=== PATIENT | male | born 1970 ===

== ENCOUNTER 2022-03-06 20:01 | Inpatient (IN) ==
[2022-03-06] MEDS ORDERED: ACETAMINOPHEN 325 MG TABLET PO PRN (22:43)
[2022-03-06] MEDS ORDERED: GLUCAGON 1 MG VIAL IM PRN (22:43)
[2022-03-06] MEDS ORDERED: DEXTROSE 10% 250 ML BAG IV PRN (23:06)
[2022-03-06 23:24] LABS: Basophils % 0.3 % (0.0-0.8); Eosinophils # 0.2 10*3/uL (0.0-0.87); Eosinophils % 2.3 % (0.00-10.9); Hematocrit 35.7 VOL% (42.0-52.0); Hemoglobin 11.7 GM/DL (14.0-18.0); Immature Granulocytes % 0.8 %; Immature Granulocytes Absolute 0.06 #; Lymphocytes % 27.3 % (21.2-54.2); Mean Corpuscular HGB Conc 32.8 GM/DL (32-36); Mean Corpuscular Volume 90.8 FL (87-102); Mean Platelet Volume 8.8 FL (9.6-12.0); Monocytes # 0.6 10*3/uL (0.11-0.8); Monocytes % 8.4 % (1.7-12.7); Neutrophils % 60.9 % (38.7-73.9); Platelet Count 455 T/CUMM (130-400); Red Blood Count 3.93 MC/CUMM (3.8-5.5); White Blood Count 7.3 T/CUMM (4-12)
[2022-03-06 23:46] LABS: Alanine Aminotransferase 19 U/L (16-61); Albumin 2.6 G/DL (3.4-5.0); Alkaline Phosphatase 93 U/L (45-117); Aspartate Amino Transferase 15 U/L (0-37); Bilirubin,Total < 0.39 MG/DL (0.20-1.00); Blood Urea Nitrogen 14 MG/DL (7-18); Calcium 8.6 MG/DL (8.5-10.1); Carbon Dioxide 27 MMOL/L (21-32); Chloride 103 MMOL/L (98-107); Glucose 377 MG/DL (74-106); Osmolality,Calculated 285.1 MOS/KG (273-304); Potassium 4.4 MMOL/L (3.5-5.1); Sodium 135 MMOL/L (136-145); Total Protein 7.4 G/DL (6.4-8.2)
[2022-03-07] MEDS: cefTRIAXone 1,000 MG in SODIUM CHLORIDE 0.9% 100 ML IV SCH ×2 (00:01→23:54)
[2022-03-07] MEDS: DOXYCYCLINE HYCLATE INJ 100 MG in SODIUM CHLORIDE 0.9% 100 ML IV SCH ×3 (01:01→23:53)
[2022-03-07 07:01] LABS: Basophils % 0.4 % (0.0-0.8); Eosinophils # 0.2 10*3/uL (0.0-0.87); Eosinophils % 2.5 % (0.00-10.9); Hematocrit 32.5 VOL% (42.0-52.0); Hemoglobin 10.5 GM/DL (14.0-18.0); Immature Granulocytes % 0.6 %; Immature Granulocytes Absolute 0.04 #; Lymphocytes # 1.6 10*3/uL (1.4-4.0); Lymphocytes % 23.6 % (21.2-54.2); Mean Corpuscular HGB Conc 32.3 GM/DL (32-36); Mean Corpuscular Volume 91.8 FL (87-102); Mean Platelet Volume 8.8 FL (9.6-12.0); Monocytes # 0.6 10*3/uL (0.11-0.8); Monocytes % 8.2 % (1.7-12.7); Neutrophils % 64.7 % (38.7-73.9); Platelet Count 439 T/CUMM (130-400); Red Blood Count 3.54 MC/CUMM (3.8-5.5); Red Cell Distribution Width 12.3 % (9.3-17.3); White Blood Count 6.8 T/CUMM (4-12)
[2022-03-07] MEDS ORDERED: ONDANSETRON 4 MG/2 ML VIAL IV PRN (07:28)
[2022-03-07 07:30] LABS: Alanine Aminotransferase 15 U/L (16-61); Albumin 2.4 G/DL (3.4-5.0); Alkaline Phosphatase 82 U/L (45-117); Aspartate Amino Transferase 11 U/L (0-37); Bilirubin,Total < 0.39 MG/DL (0.20-1.00); Blood Urea Nitrogen 11 MG/DL (7-18); Calcium 8.2 MG/DL (8.5-10.1); Carbon Dioxide 29 MMOL/L (21-32); Chloride 105 MMOL/L (98-107); Glucose 356 MG/DL (74-106); Osmolality,Calculated 285.8 MOS/KG (273-304); Potassium 4.7 MMOL/L (3.5-5.1); Sodium 137 MMOL/L (136-145); Total Protein 6.9 G/DL (6.4-8.2)
[2022-03-07] MEDS: PANTOPRAZOLE 40 MG TABLET PO SCH (10:57)
[2022-03-07] MEDS: ENOXAPARIN 40 MG/0.4 ML SYRINGE SUBCUT SCH (10:58)
[2022-03-07] MEDS: INSULIN REGULAR 100 UNIT/ML SUBCUT SCH ×4 (10:58→21:16)
[2022-03-07 17:39] LABS: Ferritin 314.8 ng/mL (26-388)
[2022-03-07 17:42] LABS: Folate 15.82 NG/ML (5.38-24.0)
[2022-03-07] MEDS: DOCUSATE SODIUM 100 MG CAPSULE PO SCH (21:16)
[2022-03-07] MEDS: INSULIN GLARGINE 100 UNIT/ML SUBCUT SCH (21:17)
[2022-03-08 05:45] LABS: Basophils % 0.3 % (0.0-0.8); Eosinophils # 0.2 10*3/uL (0.0-0.87); Eosinophils % 2.5 % (0.00-10.9); Hematocrit 33.2 VOL% (42.0-52.0); Immature Granulocytes % 0.6 %; Immature Granulocytes Absolute 0.05 #; Lymphocytes % 25.1 % (21.2-54.2); Mean Corpuscular HGB Conc 33.1 GM/DL (32-36); Mean Corpuscular Volume 91.2 FL (87-102); Mean Platelet Volume 8.8 FL (9.6-12.0); Monocytes # 0.6 10*3/uL (0.11-0.8); Monocytes % 7.7 % (1.7-12.7); Neutrophils % 63.8 % (38.7-73.9); Platelet Count 467 T/CUMM (130-400); Red Blood Count 3.64 MC/CUMM (3.8-5.5); Red Cell Distribution Width 12.4 % (9.3-17.3)
[2022-03-08 05:54] LABS: Calcium 8.6 MG/DL (8.5-10.1); Osmolality,Calculated 284.5 MOS/KG (273-304); Potassium 4.3 MMOL/L (3.5-5.1)
[2022-03-08 06:00] LABS: Risk Ratio 4.48; Thyroid Stimulating Hormone 4.28 uIU/ml (0.358-3.74)
[2022-03-08] MEDS ORDERED: MAGNESIUM SULF RIDER 2 GM/50 ML PREMIX IV ONE (07:38)
[2022-03-08 08:13] LABS: Free T4 (Free Thyroxine) 1.07 NG/DL (0.76-1.46)
[2022-03-08] MEDS: INSULIN REGULAR 100 UNIT/ML SUBCUT SCH ×4 (10:45→21:46)
[2022-03-08] MEDS: ENOXAPARIN 40 MG/0.4 ML SYRINGE SUBCUT SCH (10:46)
[2022-03-08] MEDS: PANTOPRAZOLE 40 MG TABLET PO SCH (10:47)
[2022-03-08] MEDS: MELOXICAM 7.5 MG TABLET PO SCH (10:47)
[2022-03-08] MEDS: SODIUM CHLORIDE 0.9% 1,000 ML IV SCH (10:47)
[2022-03-08] MEDS: CHOLECALCIFEROL 1,000 UNIT TABLET PO SCH (10:47)
[2022-03-08] MEDS: DOCUSATE SODIUM 100 MG CAPSULE PO SCH ×2 (10:50→21:45)
[2022-03-08] MEDS: GENTAMICIN INJ 400 MG in SODIUM CHLORIDE 0.9% 100 ML IV SCH (11:07)
[2022-03-08] MEDS: DOXYCYCLINE HYCLATE INJ 100 MG in SODIUM CHLORIDE 0.9% 100 ML IV SCH (13:25)
[2022-03-08 17:17] LABS: Mucus,Urine Occasional /LPF (Occasional); RBC,Urine 1 /HPF (0-4)
[2022-03-08 17:18] LABS: Urine Appearance Clear (Clear); Urine Color Yellow (Yellow); Urine Specific Gravity 1.025 (1.001-1.035)
[2022-03-08 17:19] LABS: Bilirubin,Urine Negative (Negative); Blood, Urine Negative (Negative); Glucose,Urine (UA) Negative (Negative); Ketones,Urine Negative (Negative); Nitrite,Urine Negative (Negative); Protein,Urine Negative (Negative)
[2022-03-08] MEDS: INSULIN GLARGINE 100 UNIT/ML SUBCUT SCH (21:46)
[2022-03-08] MEDS: cefTRIAXone 1,000 MG in SODIUM CHLORIDE 0.9% 100 ML IV SCH (23:54)
[2022-03-09] MEDS: DOXYCYCLINE HYCLATE INJ 100 MG in SODIUM CHLORIDE 0.9% 100 ML IV SCH ×2 (00:39→14:13)
[2022-03-09 05:26] LABS: Calcium 7.8 MG/DL (8.5-10.1); Osmolality,Calculated 293.3 MOS/KG (273-304); Potassium 4.5 MMOL/L (3.5-5.1)
[2022-03-09 05:29] LABS: Basophils % 0.7 % (0.0-0.8); Eosinophils # 0.2 10*3/uL (0.0-0.87); Eosinophils % 2.8 % (0.00-10.9); Hematocrit 34.3 VOL% (42.0-52.0); Hemoglobin 11.1 GM/DL (14.0-18.0); Immature Granulocytes % 0.8 %; Immature Granulocytes Absolute 0.05 #; Lymphocytes # 1.9 10*3/uL (1.4-4.0); Lymphocytes % 31.4 % (21.2-54.2); Mean Corpuscular HGB Conc 32.4 GM/DL (32-36); Mean Corpuscular Volume 92.2 FL (87-102); Mean Platelet Volume 8.9 FL (9.6-12.0); Monocytes # 0.5 10*3/uL (0.11-0.8); Monocytes % 7.3 % (1.7-12.7); Platelet Count 476 T/CUMM (130-400); Red Blood Count 3.72 MC/CUMM (3.8-5.5); Red Cell Distribution Width 12.6 % (9.3-17.3); White Blood Count 6.2 T/CUMM (4-12)
[2022-03-09] MEDS: INSULIN REGULAR 100 UNIT/ML SUBCUT SCH ×4 (07:58→21:39)
[2022-03-09] MEDS: ENOXAPARIN 40 MG/0.4 ML SYRINGE SUBCUT SCH (08:05)
[2022-03-09] MEDS: MELOXICAM 7.5 MG TABLET PO SCH (08:05)
[2022-03-09] MEDS: CHOLECALCIFEROL 1,000 UNIT TABLET PO SCH (08:05)
[2022-03-09] MEDS: DOCUSATE SODIUM 100 MG CAPSULE PO SCH ×2 (08:05→21:40)
[2022-03-09] MEDS: PANTOPRAZOLE 40 MG TABLET PO SCH (08:05)
[2022-03-09] MEDS: SODIUM CHLORIDE 0.9% 1,000 ML IV SCH (14:13)
[2022-03-09] MEDS ORDERED: INSULIN GLARGINE 100 UNIT/ML SUBCUT SCH (21:00)
[2022-03-10] MEDS: cefTRIAXone 1,000 MG in SODIUM CHLORIDE 0.9% 100 ML IV SCH (00:05)
[2022-03-10] MEDS: DOXYCYCLINE HYCLATE INJ 100 MG in SODIUM CHLORIDE 0.9% 100 ML IV SCH ×2 (01:55→14:11)
[2022-03-10 06:26] LABS: Basophils % 0.4 % (0.0-0.8); Eosinophils # 0.2 10*3/uL (0.0-0.87); Eosinophils % 2.2 % (0.00-10.9); Hematocrit 36.5 VOL% (42.0-52.0); Hemoglobin 11.7 GM/DL (14.0-18.0); Immature Granulocytes % 0.6 %; Immature Granulocytes Absolute 0.05 #; Lymphocytes # 1.6 10*3/uL (1.4-4.0); Lymphocytes % 20.5 % (21.2-54.2); Mean Corpuscular HGB Conc 32.1 GM/DL (32-36); Mean Corpuscular Volume 91.3 FL (87-102); Mean Platelet Volume 8.6 FL (9.6-12.0); Monocytes # 0.5 10*3/uL (0.11-0.8); Monocytes % 6.1 % (1.7-12.7); Neutrophils % 70.2 % (38.7-73.9); Platelet Count 465 T/CUMM (130-400); Red Cell Distribution Width 12.5 % (9.3-17.3); White Blood Count 7.9 T/CUMM (4-12)
[2022-03-10 06:54] LABS: Calcium 8.5 MG/DL (8.5-10.1); Osmolality,Calculated 282.7 MOS/KG (273-304); Potassium 4.3 MMOL/L (3.5-5.1)
[2022-03-10] MEDS: ENOXAPARIN 40 MG/0.4 ML SYRINGE SUBCUT SCH (09:14)
[2022-03-10] MEDS: INSULIN REGULAR 100 UNIT/ML SUBCUT SCH ×2 (09:14→12:45)
[2022-03-10] MEDS: CHOLECALCIFEROL 1,000 UNIT TABLET PO SCH (09:15)
[2022-03-10] MEDS: PANTOPRAZOLE 40 MG TABLET PO SCH (09:15)
[2022-03-10] MEDS: DOCUSATE SODIUM 100 MG CAPSULE PO SCH (09:15)
[2022-03-10] MEDS: MELOXICAM 7.5 MG TABLET PO SCH (09:15)
[2022-03-10] MEDS: SODIUM CHLORIDE 0.9% 1,000 ML IV SCH (09:31)
[2022-03-10] MEDS: GENTAMICIN INJ 400 MG in SODIUM CHLORIDE 0.9% 100 ML IV SCH (12:12)
[2022-03-10 12:45] VITALS: BP 150/96
== END 2022-03-10 14:05 | disposition home or self-care (01) | DRG 728 ==
LOC: N.2W → SUATTDRO 21:43
PROVIDERS: ADMIT Internal Medicine; ATTEND Internal Medicine Geriatric Medicine